=== PATIENT | female | born 1940 | race African-American/Black ===

== ENCOUNTER 2017-02-21 07:50 | Day surgery (SDC) | payer OTHER ==
--- NOTE | ~2017-02-21 | EGD ---
EGD REPORT [facility] [place] [address] [place] 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 Patient Profile: Informed consent was obtained from the patient by me prior to the procedure. Risks, benefits, and alternatives were discussed including the risk of bleeding, perforation, infection, reaction to medicine, missed lesion, and cardiopulmonary complications. Referring MD: Sam Norwood Medicines: Monitored Anesthesia Care Complications: No immediate complications. Procedure: Pre-Anesthesia Assessment: - ASA Grade Assessment: II - A patient with mild systemic disease. After obtaining informed consent, the endoscope was passed under direct vision. Throughout the procedure, the patient's blood pressure, pulse, and oxygen saturations were monitored continuously. The GIF [id number] was introduced through the mouth, and advanced to the second part of duodenum. The endoscope was withdrawn with careful examination all mucosal surfaces including retroflexion stomach. The upper GI endoscopy was accomplished without difficulty. The patient tolerated the procedure well. Findings: The examined duodenum was normal. Patchy mildly erythematous mucosa was found in the gastric antrum. Biopsies were taken with a cold forceps for histology. A single 5 mm sessile polyp was found in the gastric body. Biopsies were taken with a cold forceps for histology. A single 8 mm pedunculated polyp was found in the gastric fundus. Biopsies were taken with a cold forceps for histology. 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 The maximum longitudinal extent of these mucosal changes was 1 cm in length. Biopsies were taken with a cold forceps for histology. No nodules or esophagitis. EGD REPORT [address] [id number] [place]. [address] NAME: SHELLEY MONTANEZ : [birth year] STATUS : REG [facility]#: [id number] AGE: 76 ADM/REG DATE : 02/21/17 MR#: [id number] REPORT SERV DATE: 02/21/17 DICTATED BY: SHARYN SOW DATE: 02/21/17 REPORT STATUS : Draft TRANSCRIBED BY: [employer] DATE: 02/21/17 Impression: - Normal examined duodenum. - Erythematous mucosa in the antrum. Biopsied. - A single gastric polyp. Biopsied. - A single gastric polyp. Biopsied. - Esophageal mucosal changes secondary to established short-segment Dennison's disease. Biopsied. Recommendation: - Patient has a contact number available for emergencies. The signs and symptoms of potential delayed complications were discussed with the patient. Return to normal activities tomorrow. Written discharge instructions were provided to the patient. - Regular diet. - Continue present medications. - Await pathology results. - Reduce Nexium to 40mg daily if tolerated. Procedure Code(s): --- Professional --- 07194, Esophagogastroduodenoscopy, flexible, transoral; with biopsy, single or multiple Diagnosis Code(s): --- Professional --- K22.70, Dennison's esophagus without dysplasia K31.9, Disease of stomach and duodenum, unspecified K31.7, Polyp of stomach and duodenum R12, Heartburn CPT copyright 2013 [employer]. All rights reserved. The codes documented in this report are preliminary and upon pre coder review may be revised to meet current compliance requirements. SHARYN SOW MD 02/21/2017 10:23 AM This report has been signed electronically. Number of Addenda: 0 Note Initiated On: 02/21/2017 8:32 AM Scope Withdrawal Time 0 hours 0 minutes 0 seconds [id number] [address]
[~2017-02-21 07:50] MED LIST: ACET500CAP PO; B12250T PO; BENTYL10 PO; COD LIVE1 PO; COD LIVER PO; KLOR-CON 1010 MEQ PO; KLOR-CON M2020 MEQ PO; LEVAQUIN750 MG PO; LIALDA1.2 GM PO; LORTAB 5 PO; MAX25 PO; MEDROLPAK4 PO; MIRALAXPKT PO; NEXIUM40 PO; PRAVACHOL40 MG PO; SYSTANE OPH; TAMIFLU PO
== END 2017-02-21 23:59 | disposition home or self-care (01) ==
LOC: DMU 07:50
PROVIDERS: Internal Medicine Gastroenterology
PROC: 0DB68ZZ Excision of Stomach, Via Natural or Artificial Opening Endoscopic (ICD-10-PCS; principal; 2017-02-21 09:30)
DX: K31.7 Polyp of stomach and duodenum (principal); K29.50 Unspecified chronic gastritis without bleeding; K22.70 Barrett's esophagus without dysplasia; K31.9 Disease of stomach and duodenum, unspecified; I10 Essential (primary) hypertension; G47.33 Obstructive sleep apnea (adult) (pediatric); J40 Bronchitis, not specified as acute or chronic; K21.9 Gastro-esophageal reflux disease without esophagitis; M19.90 Unspecified osteoarthritis, unspecified site; Z98.1 Arthrodesis status; F17.210 Nicotine dependence, cigarettes, uncomplicated; Z88.0 Allergy status to penicillin; Z88.1 Allergy status to other antibiotic agents; Z90.710 Acquired absence of both cervix and uterus; Z90.49 Acquired absence of other specified parts of digestive tract; Z98.890 Other specified postprocedural states; Z79.899 Other long term (current) drug therapy
CPT/HCPCS: 88305